=== PATIENT | male | born 1955 | race Caucasian/White ===

== ENCOUNTER → 2023-01-20 12:47 | Outpatient (BNVA) | payer OTHER, SELFPAY | PROVIDERS: PCP Internal Medicine; Referring Provider Internal Medicine; Visit Provider Surgery | DX: L72.3 Sebaceous cyst (principal) | CPT/HCPCS: 99202 ==

== ENCOUNTER 2023-02-26 07:49 | Day surgery (SDC) | payer OTHER, SELFPAY ==
--- NOTE | 2023-02-25 09:37 | HO.ANESPROP2 ---
Documented by User: Earnestine Crowley NP 02/25/23 09:44 HPI - Anesthesia Eval Consult details Narrative: 67yo M for Excision Large Mid Back Sebaceous Cyst PMFSH Active Problems Active Problems: All Active Problems (Updated 01/20/23 @ 13:14 by Shamir Juarez MD) Sebaceous cyst (Acute) Past Medical History Medical History Abnormal liver function test Arthritis Cervicalgia HTN (hypertension) Hx of testicular mass Hyperglycemia, unspecified Impaired fasting glucose Inhibited sex excitement Pain of right shoulder joint on movement Sebaceous cyst Surgical History Surgical History History of left knee replacement (12/10/20) History of right hip replacement (10/07/19) History of testicular surgery History of total right knee replacement (08/13/22) Social History Social History Alcohol intake: former Year quit: 20 y Patient Tobacco Use Status: Never used Tobacco Use of substances other than those prescribed or required for medical reasons: Yes Substance Use Frequency: Occasionally Are you DNR?: No Advance Directives: No Advance Directives Information Provided: Yes Meds Allergies Allergy/AdvReac Type Severity Reaction Status Date / Time naproxen [From NAPROSYN] Allergy Mild RASH Verified 02/26/23 08:30 Home Medications Medication Instructions Recorded Confirmed Last Taken Type amlodipine 10 mg tablet (Norvasc) 10 mg PO DAILY 02/23/23 02/26/23 Unknown History celecoxib 200 mg capsule 200 mg PO DAILY 02/23/23 02/26/23 Unknown History diclofenac sodium 50 mg 100 mg PO Q12H PRN Pain 02/23/23 02/26/23 Unknown History tablet,delayed release hydrochlorothiazide 25 mg tablet 25 mg PO DAILY 02/23/23 02/26/23 Unknown History lisinopril 5 mg tablet 5 mg PO DAILY 02/23/23 02/26/23 Unknown History sildenafil 50 mg tablet (Viagra) 50 mg PO DAILY PRN Seizure Activity 02/23/23 02/26/23 Unknown History Exam Exam Date and Time: February 25, [id number] Assessment and Plan Assessment Anesthesia Assessment: Chart Reviewed Documented by User: Abi Chery MD 02/26/23 09:17 HPI - Anesthesia Eval Consult details Narrative: 67yo M for Excision Large Mid Back Sebaceous Cyst, history of hypertension.obesity, possible DHARA undiagnosed PMFSH Active Problems Active Problems: All Active Problems (Updated 01/20/23 @ 13:14 by Shamir Juarez MD) Sebaceous cyst (Acute)hypertension.obesity, possible undiagnosed DHARA Past Medical History Medical History Abnormal liver function test Arthritis Cervicalgia HTN (hypertension) Hx of testicular mass Hyperglycemia, unspecified Impaired fasting glucose Inhibited sex excitement Pain of right shoulder joint on movement Sebaceous cyst Family History Family history of problems with anesthesia: No Surgical History Surgical History History of left knee replacement (12/10/20) History of right hip replacement (10/07/19) History of testicular surgery History of total right knee replacement (08/13/22) History of Problems with Anesthesia: No Social History Social History Alcohol intake: former Year quit: 20 y Patient Tobacco Use Status: Never used Tobacco Use of substances other than those prescribed or required for medical reasons: Yes Substance Use Frequency: Occasionally Are you DNR?: No Advance Directives: No Advance Directives Information Provided: Yes Meds Allergies Allergy/AdvReac Type Severity Reaction Status Date / Time naproxen [From NAPROSYN] Allergy Mild RASH Verified 02/26/23 08:30 Home Medications Medication Instructions Recorded Confirmed Last Taken Type amlodipine 10 mg tablet (Norvasc) 10 mg PO DAILY 02/23/23 02/26/23 Unknown History celecoxib 200 mg capsule 200 mg PO DAILY 02/23/23 02/26/23 Unknown History diclofenac sodium 50 mg 100 mg PO Q12H PRN Pain 02/23/23 02/26/23 Unknown History tablet,delayed release hydrochlorothiazide 25 mg tablet 25 mg PO DAILY 02/23/23 02/26/23 Unknown History lisinopril 5 mg tablet 5 mg PO DAILY 02/23/23 02/26/23 Unknown History sildenafil 50 mg tablet (Viagra) 50 mg PO DAILY PRN Seizure Activity 02/23/23 02/26/23 Unknown History Exam Airway Mallampati Class: II TM Dist: >3cm Neck ROM: Full Denture: Upper Loose/Missing/Broken Teeth: Lower (rotten teeth, missing teeth) Heart: rrr Lungs: cta Assessment and Plan Assessment Anesthesia Assessment: Anesthesia Plan Discussed Final Anesthetic Review Family History of Problems with Anesthesia: No History of Problems with Anesthesia: No NPO: Yes ASA Class: II Final Preanesthetic Review: No Changes in Pt Med Stat, Meds/Allgs Chart Reviewed, Consent Obtained/Reviewed and Anes Risks/Benef Reviewed Patient Risk: Low Procedure Risk: Low Anesthetic Plan Anesthetic Plan: MAC: Disposition: Standard PACU
--- NOTE | 2023-02-26 04:36 | MHC.SHP ---
Pre-Procedural Eval Section A Date of Service: 02/26/23 The patient is an INPATIENT: No Changes since office visit: No Cold of Flu in the past 2 weeks, No New Medical Problems, No Changes in Medication and No Patient answered all questions The History & Physical has been completed within 30 days and I have reviewed it.: Yes Section B Chief Complaint: Sebaceous cyst Allergies: Allergies Allergy/AdvReac Type Severity Reaction Status Date / Time naproxen [From NAPROSYN] Allergy Mild RASH Unverified 01/20/23 12:58 Plan I have reviewed the history and physical and performed a pertinent physical examination on my patient. No changes have occurred unless specified. Time Spent With Patient Time: Total time managing care of this patient today ____ minutes.
[2023-02-26 08:32] VITALS: BMI 32.9
[2023-02-26 08:52] VITALS: BP 143/78; PULSE 61; RESP 16; TEMP 36.2; O2SAT 96
[2023-02-26] MEDS: Lactated Ringers 1,000 ML 100 ML IVCONT (09:12)
--- NOTE | 2023-02-26 10:27 | P.OP_ITS ---
Operative Note Operative Note Date of Service: 02/26/23 Narrative: Preoperative diagnosis: []Massive mid back sebaceous cyst Postop diagnosis: [] same Procedure [] excision large sebaceous cyst mid back Surgeon: [] Larry Animal Therapist: [] Type of Anesthesia: [] MAC Indication for surgery: [] large sebaceous cyst, final dimensions measuring approximately 7 x 5 cm of mid back Findings: [] patient brought to the operating room, placed on operative table in supine position, after adequate level of MAC anesthesia was induced,, patient was placed in left lateral decubitus position. Back was prepped and draped in usual sterile fashion. incisional area was infiltrated with 1 % lidocaine/ 0.5% Marcaine. A transverse bi- elliptical incision encompassing the large sebaceous cyst of the midback, this carried down through skin, subcutaneous tissue, and circumferential dissection of the cyst was uneventfully performed with dimensions as described above Of the entire large cyst. Specimen sent to pathology. The woundWas irrigated, and secured hemostasis. It was closed in the following manner; interrupted inverted dermal 3-0 Vicryl sutures followed by Steri-Strips and sterile dressings were applied. Sponge, needle, instrument counts reported correct. Patient tolerated the procedure well and emerged anesthesia stable condition. EBL minimal
[2023-02-26 10:31] VITALS: BP 142/62; PULSE 65; RESP 18; TEMP 37.3; O2SAT 96
[2023-02-26] MEDS: oxyCODONE HCl Immed Release 5 MG TABLET PO (10:40)
[2023-02-26 10:46] VITALS: BP 130/75; PULSE 60; RESP 18; TEMP 36.3; O2SAT 97
== END 2023-02-26 11:07 | disposition home or self-care (01) ==
PROVIDERS: PCP Internal Medicine; Visit Provider Surgery
PROC: (CPT 11406; principal; 2023-02-26 10:10)
DX: L72.3 Sebaceous cyst (principal); Z88.8 Allergy status to other drugs, medicaments and biological substances; I10 Essential (primary) hypertension; E66.9 Obesity, unspecified; Z79.899 Other long term (current) drug therapy
CPT/HCPCS: 11406; 88304; J0690; J2405; J2795; J3010

== ENCOUNTER → 2023-02-26 07:49 | Outpatient (BNV) | payer OTHER, SELFPAY | PROVIDERS: PCP Internal Medicine; Visit Provider Surgery | DX: L72.0 Epidermal cyst (principal) | CPT/HCPCS: 11406 ==

== ENCOUNTER 2023-03-10 12:50 | Outpatient (AMB) | payer OTHER, SELFPAY ==
--- NOTE | 2023-03-10 13:00 | A.OFFVIS_ITS ---
Intake Vital Signs 03/10/23 13:03 Height 5 ft 11 in Weight 239 lb 6.752 oz BMI 33.4 BP 130/80 Blood Pressure Location Lt brachial Position Sitting Intake Visit Reasons: S/P excision Lg. mid back sebaceous cyst Intake Note: Patient is seen in office for post op assessment post excision of cyst of the leg. Patient c/o dneis any concerns Closing Manager Required: No Accompanied by: Self / Same As Patient Allergies naproxen [From NAPROSYN] Allergy (Mild, Verified 03/10/23 13:04) RASH HPI HPI Comments History of Present Illness Details Patient presents for follow-up. He is doing well. He has minimal incisional discomfort. Pathology is benign. [facility] Medical History Abnormal liver function test Arthritis Cervicalgia HTN (hypertension) Hx of testicular mass Hyperglycemia, unspecified Impaired fasting glucose Inhibited sex excitement Pain of right shoulder joint on movement Sebaceous cyst Surgical History History of left knee replacement (12/10/20) History of right hip replacement (10/07/19) History of testicular surgery History of total right knee replacement (08/13/22) Hx of excision of epidermal inclusion cyst (02/26/23) Social History Alcohol intake: former Year quit: 20 y Patient Tobacco Use Status: Never used Tobacco Physical Exam Vital Signs: Last Vital Signs BP 130/80 03/10/23 13:03 BMI result Body Mass Index 33.4 Back/Spine/Pelvis Other: Back wound is clean dry and intact, healing uneventfully. Assessment & Plan Assessment & Plan (1) Sebaceous cyst: Code(s): L72.3 - Sebaceous cyst Plan Patient has been given very specific local instructions to avoid strenuous activities for next few weeks time. He will otherwise follow up p.r.n.. Coding Level of Care Code Global (99793) Diagnoses Sebaceous cyst L72.3
[2023-03-10 13:03] VITALS: BP 130/80; BMI 33.4
== END 2023-03-10 13:04 | disposition home or self-care (01) ==
PROVIDERS: PCP Internal Medicine; Visit Provider Surgery
DX: L72.3 Sebaceous cyst (principal)
CPT/HCPCS: 99024

== ENCOUNTER → 2023-03-10 12:50 | Outpatient (BNVA) | payer OTHER, SELFPAY | PROVIDERS: PCP Internal Medicine; Visit Provider Surgery ==